=== PATIENT | male | born 1955 | race Caucasian/White ===

== ENCOUNTER 2019-04-24 | Emergency (ER) | payer MEDICARE, MEDICAID ==
[2019-04-24] MEDS ORDERED: METFORMIN850 MG PO (13:46)
[2019-04-24] MEDS ORDERED: GABAPENTIN100 MG PO (13:47)
[2019-04-24] MEDS ORDERED: ALBUTEROL SUL0.083 % IN (13:47)
[2019-04-24] MEDS ORDERED: INVOKANA100 MG PO (13:48)
[2019-04-24] MEDS ORDERED: AMLOD/BENAZP1 CA1 PO (13:48)
[2019-04-24] MEDS ORDERED: POT CHLORIDE10 ME5 PO (13:49)
[2019-04-24] MEDS ORDERED: FUROSEMIDE20 MG PO (13:49)
== END 2019-04-24 17:12 | DRG 999 ==
DX: T84.013A Broken internal left knee prosthesis, initial encounter (principal); S72.492A Other fracture of lower end of left femur, initial encounter for closed fracture; M97.12XA Periprosthetic fracture around internal prosthetic left knee joint, initial encounter; E11.9 Type 2 diabetes mellitus without complications; W01.0XXA Fall on same level from slipping, tripping and stumbling without subsequent striking against object, initial encounter; Z79.84 Long term (current) use of oral hypoglycemic drugs